=== PATIENT | female | born 1995 | race Caucasian/White ===

== ENCOUNTER 2021-11-09 16:13 | Emergency (ER) | payer MEDICAID, OTHER ==
[~2021-11-09] VITALS: Ht 162.6 cm; Wt 102.5 kg
[2021-11-09 17:09] VITALS: BP 133/88
[2021-11-09] MEDS ORDERED: KETOROLAC TROMETH 60MG/2ML VIAL IM ONE (17:30)
[2021-11-09] MEDS ORDERED: IBUP800T27 PO ×2 (17:34→17:58)
== END 2021-11-09 18:20 | disposition home or self-care (01) ==
LOC: ER 16:16
DX: S52.502A Unspecified fracture of the lower end of left radius, initial encounter for closed fracture (principal); S52.202A Unspecified fracture of shaft of left ulna, initial encounter for closed fracture; Y99.8 Other external cause status; W18.39XA Other fall on same level, initial encounter; Y93.89 Activity, other specified; Y92.89 Other specified places as the place of occurrence of the external cause; Z88.1 Allergy status to other antibiotic agents; Z88.0 Allergy status to penicillin; Z88.6 Allergy status to analgesic agent
CPT/HCPCS: 29125; 73110; 96372; 99283; J1885

== ENCOUNTER 2021-11-09 20:22 | Emergency (ER) | payer MEDICAID ==
[~2021-11-09] VITALS: Ht 162.6 cm; Wt 102.5 kg
[~2021-11-09 20:22] MED LIST: IBUP800T27 PO
[2021-11-09 20:23] VITALS: BP 120/88
== END 2021-11-09 22:30 | disposition left against medical advice (07) ==
LOC: ER 20:24
DX: M79.602 Pain in left arm (principal); Z53.21 Procedure and treatment not carried out due to patient leaving prior to being seen by health care provider